=== PATIENT | female | born 1975 | race Caucasian/White ===

== ENCOUNTER 2021-02-07 13:02 | Inpatient (IN) | payer MEDICAID, SELFPAY ==
[2021-02-07 13:03] VITALS: BP 138/74; PULSE 94; RESP 16; TEMP 36.2; O2SAT 98; BMI 40.6
--- NOTE | 2021-02-07 13:08 | EDS_ITS ---
HPI History of Present Illness Chief Complaint: Substance Abuse Narrative Narrative: 24-year-old female currently on Subutex presenting for withdrawal from benzodiazepines. She states she takes Xanax chronically. This is prescribed for her however she has been overusing them. She wished to detox from benzodiazepines however [facility] would not take her for benzodiazepine withdrawal. She states that she last used yesterday and has been a little bit shaky and vomiting today. [facility] Medical History (Updated 02/07/21 @ 14:53 by Loreto Canales) Anxiety Depression Hypothyroidism MRSA carrier PTSD (post-traumatic stress disorder) Seizures Substance abuse Home Medications alprazolam [Xanax] 2 mg PO Q6H 02/07/21 [History Last Taken 02/06/21] buprenorphine-naloxone [Zubsolv] 1 tab SUBLINGUAL DAILY 02/07/21 [History Last Taken Unknown] clonidine HCl 0.2 mg PO TID 02/07/21 [History Last Taken Unknown] furosemide 40 mg PO DAILY 02/07/21 [History Last Taken Unknown] gabapentin 800 mg PO 4X/DAY 02/07/21 [History Last Taken Unknown] levothyroxine 100 mcg PO DAILY 02/07/21 [History Last Taken Unknown] potassium chloride 20 meq PO DAILY 02/07/21 [History Last Taken Unknown] quetiapine [Seroquel] 100 mg PO DAILY 02/07/21 [History Last Taken Unknown] Allergy/AdvReac Type Severity Reaction Status Date / Time naloxone Allergy Anaphylaxis Verified 02/07/21 13:03 Surgical History (Updated 02/07/21 @ 14:52 by Loreto Canales) Hx of appendectomy Hx of cholecystectomy Social History Smoking Status: Current every day smoker tobacco type: cigarettes ROS ROS ED Constitutional Constitutional ED: Denies chills, fever(s) or subjective Eyes Eyes: Denies blurry vision or change in vision ENT ENT ED: Denies rhinorrhea or sore throat Cardiovascular Cardiovascular: Denies chest pain or palpitations Respiratory/Chest Respiratory/Chest: Denies cough or dyspnea Gastrointestinal Gastrointestinal: Reports nausea and vomiting Genitourinary Genitourinary ED: Denies dysuria or urinary frequency Musculoskeletal Musculoskeletal: Denies arthralgias or myalgias Integumentary Denies abscess or rash Neurologic Neurologic: Reports headache(s); Denies paresthesias EXAM Physical Exam Const Vital Signs: 02/07/21 13:03 Temperature 97.2 F L Temperature Source Temporal Pulse Rate 94 Respiratory Rate 16 Blood Pressure 138/74 H Blood Pressure Mean 95 Pulse Ox 98 Oxygen Delivery Method Room Air Positive well nourished General Appearance ED: NAD BARB Reports moist mucous membranes atraumatic Eyes PERRL and EOMs intact bilaterally Chest Wall inspection of chest normal and palpation of chest normal Resp normal respiratory effort and clear to auscultation bilaterally Cardio regular rate and regular rhythm Neuro oriented x3 Sensorium / Orientation: alert Psych mental status grossly normal and thought process normal Skin Lesions: no lesions Rashes: no rashes MDM MDM MDM Narrative Medical decision making narrative: Patient presenting with the need for admission for benzodiazepine withdrawal. She states she takes too many Xanax and wants to come off of these. I did obtain medical clearance and her lab work-up was unremarkable. Urine drug screen is positive for barbiturates and benzodiazepine. Patient remained with stable vital signs and alert and oriented. Her nausea was treated with Zofran and she did improve. Patient was discussed with Dr. Bartlett in order to obtain follow-up after hospitalization for the benzodiazepine taper. She did agree as long as the patient was going to be inpatient with her. Patient was discussed with the hospitalist and admitted in stable condition. Impression: 1. Benzodiazepine abuse Lab Data Attestation: I reviewed the patient's lab results. Labs: Laboratory Results - last 24 hr 02/07/21 02/07/21 02/07/21 13:10 13:20 13:20 WBC 6.1 RBC 4.85 Hgb 12.9 Hct 42.3 MCV 87.2 MCH 26.6 L MCHC 30.5 L RDW Std Deviation 48.1 H RDW Coeff of Kris 15.0 H Plt Count 239 MPV 10.2 Immature Gran % (Auto) 0.200 Neut % (Auto) 38.3 L Lymph % (Auto) 45.4 H [place] % (Auto) 7.5 Eos % (Auto) 7.5 H Baso % (Auto) 1.1 H Absolute Neuts (auto) 2.4 Absolute Lymphs (auto) 2.79 Nucleated RBC % 0 Sodium Potassium Chloride Carbon Dioxide Anion Gap BUN Creatinine Estim Creat Clear Calc Est GFR (MDRD) Af Amer Est GFR (MDRD) Non-Af BUN/Creatinine Ratio Glucose Calcium Total Bilirubin AST ALT Alkaline Phosphatase Total Protein Albumin Globulin Albumin/Globulin Ratio Serum , Qual Urine Opiates Screen NEGATIVE Urine Methadone Screen NEGATIVE Ur Barbiturates Screen POSITIVE H Ur Phencyclidine Scrn NEGATIVE Ur Amphetamines Screen NEGATIVE U Methamphetamin-MDMA NEGATIVE U Benzodiazepines Scrn POSITIVE H Urine Cocaine Screen NEGATIVE U Cannabinoids Screen NEGATIVE Ur Drug Screen Comment Ethyl Alcohol 4.0 02/07/21 02/07/21 13:20 13:20 WBC RBC Hgb Hct MCV MCH MCHC RDW Std Deviation RDW Coeff of Kris Plt Count MPV Immature Gran % (Auto) Neut % (Auto) Lymph % (Auto) [place] % (Auto) Eos % (Auto) Baso % (Auto) Absolute Neuts (auto) Absolute Lymphs (auto) Nucleated RBC % Sodium 137 Potassium 3.8 Chloride 107 Carbon Dioxide 24.0 Anion Gap 6 BUN 9 Creatinine 0.93 Estim Creat Clear Calc 75.85 Est GFR (MDRD) Af Amer 95 Est GFR (MDRD) Non-Af 79 BUN/Creatinine Ratio 9.6 L Glucose 122 H Calcium 8.2 L Total Bilirubin 0.20 AST 20 ALT 20 Alkaline Phosphatase 92 Total Protein 7.7 Albumin 3.5 Globulin 4.2 Albumin/Globulin Ratio 0.8 L Serum , Qual NEGATIVE Urine Opiates Screen Urine Methadone Screen Ur Barbiturates Screen Ur Phencyclidine Scrn Ur Amphetamines Screen U Methamphetamin-MDMA U Benzodiazepines Scrn Urine Cocaine Screen U Cannabinoids Screen Ur Drug Screen Comment Ethyl Alcohol Discharge Plan Triage Chief Complaint: Substance Abuse ED Provider: Vipul Payne
[2021-02-07] MEDS: Ondansetron ODT 4 MG Tablet PO (13:20)
[2021-02-07 13:31] LABS: Absolute Lymphocyte Count 2.79 X10^3/uL (0.83-4.51); Absolute Neutrophil Count 2.4 X10^3/uL (2.0-7.7); Basophil# 0.07 X10^3/uL; Basophil% 1.1 % (0-1); Eosinophil# 0.46 X10^3/uL; Eosinophils% 7.5 % (0-5); Hematocrit 42.3 % (37-47); Hemoglobin 12.9 g/dL (12.0-15.0); Lymphocyte # 2.79 X10^3/ul (0.83-4.51); Lymphocyte % 45.4 % (19-41); Mean Corp Hgb Conc 30.5 g/dL (32-36); Mean Corpuscular Hgb 26.6 pg (27.0-32.0); Mean Corpuscular Volume 87.2 fL (81-99); Mean Platelet Vol. 10.2 fl (6.2-12.0); Monocyte# 0.46 X10^3/uL; Monocyte% 7.5 % (0-10); NRBC Flagged by Analyzer 0 % (0-5); Neutrophil # 2.35 X10^3/uL (2.7-7.7); Neutrophil % 38.3 % (47-70); Platelet Count 239 K/mm3 (150-450); RBC Distribution Width SD 48.1 fl (35.1-43.9); Red Blood Count 4.85 M/mm3 (4.2-5.4); White Blood Count 6.1 K/mm3 (4.4-11.0)
[2021-02-07 13:46] LABS: ALB/GLOB Ratio 0.8 RATIO (0.9-2.4); AST(SGOT) 20 U/L (15-37); Alanine Aminotransfer ALT/SGPT 20 U/L (13-56); Albumin, Serum 3.5 g/dL (3.2-5.0); Alkaline Phosphatase 92 U/L (45-117); Anion Gap 6 (5-15); BUN 9 mg/dL (7-18); BUN/Creat Ratio 9.6 RATIO (10-20); Calcium,Total 8.2 mg/dL (8.5-10.1); Chloride 107 mmol/L (98-107); Creatinine, Serum 0.93 mg/dL (0.55-1.02); EST Glomerular Filtration Rate 79 mL/min (>60); Est Glom Filt Rate - Afr Amer 95 mL/min (>60); Estimated Creatinine Clearance 75.85 ml/min; Globulin 4.2 g/dL (2.2-4.2); Glucose 122 mg/dL (74-106); Potassium 3.8 mmol/L (3.5-5.1); Protein, Total 7.7 g/dL (6.4-8.2); Sodium Level 137 mmol/L (136-145)
[2021-02-07 13:57] LABS: Amphetamine Urine VISTA NEGATIVE (<1000 ng/mL); Barbiturate Urine VISTA POSITIVE (< 200 ng/mL); Benzodiazepine Urine VISTA POSITIVE (< 200 ng/mL); Cocaine Urine VISTA NEGATIVE (< 300 ng/mL); Ecstacy Urine VISTA NEGATIVE (< 500 ng/mL); Methadone Urine VISTA NEGATIVE (< 300 ng/mL); PCP Urine VISTA NEGATIVE (< 25 ng/mL); THC Urine VISTA NEGATIVE (< 50 ng/mL); Vista UDS pH Range 6
[2021-02-07 14:08] LABS: Internal QC Validated? YES +Cl - CLEAR BKGD; Pregnancy, Serum, hCG Quali. NEGATIVE Negative
--- NOTE | 2021-02-07 14:20 | NURSING ---
DR CASTILLO FOR DR LEHMAN
--- NOTE | 2021-02-07 14:58 | NURSING ---
MED SURG ANNA SANON
[2021-02-07 15:09] VITALS: BP 138/74; PULSE 94; RESP 16; TEMP 36.2; O2SAT 98
--- NOTE | 2021-02-07 15:19 | CM.ED ---
SOCIAL WORK Referral Source: Dr. Payne Reason for Consult: Substance abuse-requesting detox from benzodiazepines Patient presents for detox. Patient reporting to be misusing Xanax prescription and requesting detox. Patient admitted to [facility] and physician discussed with Dr. Bartlett. Call to Melania with [facility] to update on admission. Plan: Admit to [facility] Blanquita Kidd, BI REPORT DEVELOPER, OCCUPATIONAL MEDICINE OFFICER
[2021-02-07 15:40] VITALS: BMI 40.4
[2021-02-07 15:41] VITALS: BP 116/71; PULSE 71; RESP 16; TEMP 36.6; O2SAT 100
--- NOTE | 2021-02-07 16:03 | PCM.HP.STD ---
Documented by User: ALY Alvarez 02/07/21 16:24 HPI - General General Date of Admission: 02/07/21 HPI Narrative AURELIA MOREIRA, is a 45 F who presents to the ER with desire for detoxification from Xanax. Patient does report a history of seizures when withdrawing from alcohol or benzos. Patient states that despite the Xanax being prescribed to her she has been abusing them and states her last use was yesterday. Patient states that she is currently feeling tremorous and has had bouts of nausea and vomiting today. [facility] Medical History Anxiety Depression Hypothyroidism MRSA carrier PTSD (post-traumatic stress disorder) Seizures Substance abuse Home Medications albuterol sulfate 1 - 2 puff INHALATION Q4H PRN 02/07/21 [History Last Taken Unknown] alprazolam [Xanax] 2 mg PO Q6H 02/07/21 [History Last Taken 02/06/21] buprenorphine-naloxone [Zubsolv] 1 tab SUBLINGUAL DAILY 02/07/21 [History Last Taken 02/06/21] clonazepam 1 mg PO TID PRN 02/07/21 [History Last Taken Unknown] clonidine HCl 0.2 mg PO TID 02/07/21 [History Last Taken 02/06/21] dicyclomine 10 mg PO TID PRN 02/07/21 [History Last Taken Unknown] doxepin 50 mg PO DAILY 02/07/21 [History Last Taken 02/06/21] doxepin 100 mg PO QHS 02/07/21 [History Last Taken 02/06/21] furosemide 40 mg PO DAILY 02/07/21 [History Last Taken 02/06/21] gabapentin 800 mg PO 4X/DAY 02/07/21 [History Last Taken 02/06/21] haloperidol 1 mg PO BID 02/07/21 [History Last Taken 02/06/21] levothyroxine 100 mcg PO DAILY 02/07/21 [History Last Taken 02/06/21] meloxicam 15 mg PO DAILY PRN 02/07/21 [History Last Taken Unknown] ondansetron 8 mg PO TID PRN 02/07/21 [History Last Taken 02/07/21] phenobarbital 64.8 mg PO DAILY 02/07/21 [History Last Taken Unknown] potassium chloride 20 meq PO DAILY 02/07/21 [History Last Taken 02/06/21] quetiapine [Seroquel] 100 mg PO DAILY 02/07/21 [History Last Taken Unknown] ziprasidone HCl 40 mg PO BID 02/07/21 [History Last Taken 02/04/21] Allergy/AdvReac Type Severity Reaction Status Date / Time naloxone Allergy Anaphylaxis Verified 02/07/21 13:03 Surgical History Hx of appendectomy Hx of cholecystectomy Social History (Updated 02/07/21 @ 16:06 by Karen Andres NP-C) Smoking Status: Current every day smoker tobacco type: cigarettes Smoking packs per day: 2 Smoking cigarettes per day: 40.0 Years smoked: 20 Smoking pack-years: 40.00 alcohol intake: never ROS Constitutional Constitutional: Reports chills and malaise; Denies anorexia, fatigue, fever(s) or weakness Cardiovascular Cardiovascular: Denies chest pain, edema or palpitations Respiratory/Chest Respiratory/Chest: Denies cough, shortness of breath at rest or shortness of breath with exertion Gastrointestinal Gastrointestinal: Reports nausea and vomiting; Denies abdominal pain, constipation or diarrhea Genitourinary Genitourinary: Denies dysuria Musculoskeletal Musculoskeletal: Denies back pain, extremity pain, joint pain or joint stiffness Integumentary Integumentary: Denies dry skin Neurologic Neurologic: Reports tremor(s); Denies abnormal gait, abnormal speech, confusion, dizziness or focal weakness Psychiatric Psychiatric: Denies anxiety or depression Endocrine Endocrinology: Denies change in body appearance Hematologic/Lymphatic Hematologic/Lymphatic: Denies easy bleeding or easy bruising Vital Signs Vital Signs Vital Signs: 02/07/21 13:03 02/07/21 15:09 02/07/21 15:41 Temperature 97.2 F L 97.2 F L 97.8 F Temperature Source Temporal Temporal Oral Pulse Rate 94 94 71 Respiratory Rate 16 16 16 Blood Pressure 138/74 H 138/74 H 116/71 Blood Pressure Mean 95 95 86 Blood Pressure Source Monitor Blood Pressure Position Semi-Fowlers Blood Pressure Location Right Arm Pulse Ox 98 98 100 Oxygen Delivery Method Room Air Room Air Room Air Weight Weight: 261 lb 12.8 oz Body Mass Index (BMI) 40.4 Physical Exam Const alert and oriented x3 General Appearance: cooperative HEENT normocephalic and head/scalp atraumatic Eyes conjunctivae normal and no scleral icterus Neck supple and no JVD General: trachea midline Lymph Lymphatic: no lymphadenopathy noted Resp normal respiratory effort, normal air movement and clear to auscultation bilaterally Cardio regular rate, regular rhythm, S1 normal heart sound and S2 normal heart sound GI normal to inspection, nondistended, normoactive bowel sounds, soft to palpation and non-tender Extremity normal capillary refill and no clubbing, cyanosis or edema General Extremity: no tenderness to palpation of joints or extremities Skin General Skin Exam: no breakdown and turgor normal Lesions: no lesions Rashes: no rashes Neuro oriented x3, moves all extremities, no sensory deficits noted and gait normal Motor Exam: tremor Type: Positive for resting Positive for bilateral upper extremity Psych thought process normal, cooperative and affect normal Appearance: appropriate Results Lab / Micro Data Result Diagrams: 02/07/21 13:20 02/07/21 13:20 Labs: Laboratory Results - last 24 hr 02/07/21 02/07/21 02/07/21 13:10 13:20 13:20 WBC 6.1 RBC 4.85 Hgb 12.9 Hct 42.3 MCV 87.2 MCH 26.6 L MCHC 30.5 L RDW Std Deviation 48.1 H RDW Coeff of Kris 15.0 H Plt Count 239 MPV 10.2 Immature Gran % (Auto) 0.200 Neut % (Auto) 38.3 L Lymph % (Auto) 45.4 H [place] % (Auto) 7.5 Eos % (Auto) 7.5 H Baso % (Auto) 1.1 H Absolute Neuts (auto) 2.4 Absolute Lymphs (auto) 2.79 Nucleated RBC % 0 Sodium Potassium Chloride Carbon Dioxide Anion Gap BUN Creatinine Estim Creat Clear Calc Est GFR (MDRD) Af Amer Est GFR (MDRD) Non-Af BUN/Creatinine Ratio Glucose Calcium Total Bilirubin AST ALT Alkaline Phosphatase Total Protein Albumin Globulin Albumin/Globulin Ratio Serum , Qual Urine Opiates Screen NEGATIVE Urine Methadone Screen NEGATIVE Ur Barbiturates Screen POSITIVE H Ur Phencyclidine Scrn NEGATIVE Ur Amphetamines Screen NEGATIVE U Methamphetamin-MDMA NEGATIVE U Benzodiazepines Scrn POSITIVE H Urine Cocaine Screen NEGATIVE U Cannabinoids Screen NEGATIVE Ur Drug Screen Comment Ethyl Alcohol 4.0 02/07/21 02/07/21 13:20 13:20 WBC RBC Hgb Hct MCV MCH MCHC RDW Std Deviation RDW Coeff of Kris Plt Count MPV Immature Gran % (Auto) Neut % (Auto) Lymph % (Auto) [place] % (Auto) Eos % (Auto) Baso % (Auto) Absolute Neuts (auto) Absolute Lymphs (auto) Nucleated RBC % Sodium 137 Potassium 3.8 Chloride 107 Carbon Dioxide 24.0 Anion Gap 6 BUN 9 Creatinine 0.93 Estim Creat Clear Calc 75.85 Est GFR (MDRD) Af Amer 95 Est GFR (MDRD) Non-Af 79 BUN/Creatinine Ratio 9.6 L Glucose 122 H Calcium 8.2 L Total Bilirubin 0.20 AST 20 ALT 20 Alkaline Phosphatase 92 Total Protein 7.7 Albumin 3.5 Globulin 4.2 Albumin/Globulin Ratio 0.8 L Serum , Qual NEGATIVE Urine Opiates Screen Urine Methadone Screen Ur Barbiturates Screen Ur Phencyclidine Scrn Ur Amphetamines Screen U Methamphetamin-MDMA U Benzodiazepines Scrn Urine Cocaine Screen U Cannabinoids Screen Ur Drug Screen Comment Ethyl Alcohol Assessment & Plan Assessment/Plan (1) Benzodiazepine withdrawal: QUALIFIERS: Complication of substance-induced condition: uncomplicated Qualified Code(s): F13.230 - Sedative, hypnotic or anxiolytic dependence with withdrawal, uncomplicated PLAN: 1. Benzodiazepine withdrawal -Admit to [facility] for participation in the ramp program -Will initiate Ativan taper along with supportive medications including gabapentin per protocol -Case management consulted for coordination with [facility] for outpatient management -Case is complicated by the patient's use of multiple benzodiazepines including alprazolam and clonazepam along with other sedating substances including Seroquel, phenobarbital, Haldol. -Patient has a history of opioid abuse as well, will continue Subutex at this time as patient does not wish to withdrawal from both medications concurrently 2. Anxiety and depression -Will continue clonidine, doxepin, haloperidol, Geodon and Seroquel -as part of withdrawal program patient will be set up with [facility] for continued outpatient counseling and medication management 3. PTSD -see #3 4. Seizures -continue phenobarbital especially considering patient's history of withdrawal seizures 5. Hypothyroidism -continue levothyroxine DVT prophylaxis-no pharmacological prophylaxis indicated This patient was seen by ALY Alvarez under the supervision of Dr. Mack. Documented by User: Dr. Gary Mack MD 02/08/21 11:28 HPI - General General Date of Admission: 02/07/21 [facility] Medical History Anxiety Depression Hypothyroidism MRSA carrier PTSD (post-traumatic stress disorder) Seizures Substance abuse Home Medications albuterol sulfate 1 - 2 puff INHALATION Q4H PRN 02/07/21 [History Last Taken Unknown] alprazolam [Xanax] 2 mg PO Q6H 02/07/21 [History Last Taken 02/06/21] buprenorphine-naloxone [Zubsolv] 1 tab SUBLINGUAL DAILY 02/07/21 [History Last Taken 02/06/21] clonazepam 1 mg PO TID PRN 02/07/21 [History Last Taken Unknown] clonidine HCl 0.2 mg PO TID 02/07/21 [History Last Taken 02/06/21] dicyclomine 10 mg PO TID PRN 02/07/21 [History Last Taken Unknown] doxepin 50 mg PO DAILY 02/07/21 [History Last Taken 02/06/21] doxepin 100 mg PO QHS 02/07/21 [History Last Taken 02/06/21] furosemide 40 mg PO DAILY 02/07/21 [History Last Taken 02/06/21] gabapentin 800 mg PO 4X/DAY 02/07/21 [History Last Taken 02/06/21] haloperidol 1 mg PO BID 02/07/21 [History Last Taken 02/06/21] levothyroxine 100 mcg PO DAILY 02/07/21 [History Last Taken 02/06/21] meloxicam 15 mg PO DAILY PRN 02/07/21 [History Last Taken Unknown] ondansetron 8 mg PO TID PRN 02/07/21 [History Last Taken 02/07/21] phenobarbital 64.8 mg PO DAILY 02/07/21 [History Last Taken Unknown] potassium chloride 20 meq PO DAILY 02/07/21 [History Last Taken 02/06/21] quetiapine [Seroquel] 100 mg PO DAILY 02/07/21 [History Last Taken Unknown] ziprasidone HCl 40 mg PO BID 02/07/21 [History Last Taken 02/04/21] Allergy/AdvReac Type Severity Reaction Status Date / Time naloxone Allergy Anaphylaxis Verified 02/07/21 13:03 Surgical History Hx of appendectomy Hx of cholecystectomy Social History (Updated 02/07/21 @ 16:06 by Karen Andres NP-C) Smoking Status: Current every day smoker tobacco type: cigarettes Smoking packs per day: 2 Smoking cigarettes per day: 40.0 Years smoked: 20 Smoking pack-years: 40.00 alcohol intake: never Results Lab / Micro Data Result Diagrams: 02/07/21 13:20 02/07/21 13:20 Charges/Coding Addendum Addendum: Dr. Mack: I personally reviewed the chart and examined the patient, and agree with the above findings. 45-year-old female with previous history of suicidal ideation attempt presents requesting detox from benzodiazepines. She wants to stay on her Subutex for now but she states that she has too much reliance on benzodiazepines. She is already on quite a bit of different medications including Xanax 2 mg every 6 Klonopin 1 mg 3 times daily as needed gabapentin 800 mg p.o. 4 times daily, Haldol, phenobarbital, Seroquel, ziprasidone. Unfortunate she has multiple prescribers for her medications which I did talk to her about and she said that mostly is from her psychiatrist, and a general surgeon. We will continue with the benzo withdrawal protocol and have her follow-up with [facility] on discharge. I did discuss with her that I will not be writing her any prescriptions whatsoever on discharge. Visit Charges Inpatient E&M: 59264 Init Hosp L3
[2021-02-07] MEDS: LORazepam 1 MG Tablet 0.5 MG PO ×2 (16:59→22:35)
[2021-02-07] MEDS: Gabapentin 800 MG Tablet PO ×2 (16:59→22:26)
[2021-02-07] MEDS: Dicyclomine 10 MG Capsule PO ×2 (16:59→22:35)
[2021-02-07] MEDS: cloNIDine HCl 0.2 MG Tablet PO (17:04)
[2021-02-07 22:15] VITALS: BP 100/60; PULSE 63; RESP 16; TEMP 36.6; O2SAT 95
[2021-02-07] MEDS: DOXEPIN HCL 50 MG CAPSULE 100 MG PO (22:25)
[2021-02-07] MEDS: Haloperidol 1 MG Tablet PO (22:25)
[2021-02-07] MEDS: Meloxicam 15 MG Tablet PO (22:35)
[2021-02-07] MEDS: Ondansetron 8 MG Tablet PO (22:35)
[2021-02-07] MEDS: Ziprasidone HCl 20 MG Capsule 40 MG PO (22:35)
[2021-02-08] MEDS: LORazepam 1 MG Tablet 0.5 MG PO ×5 (01:44→20:43)
[2021-02-08 02:04] VITALS: BP 100/66; PULSE 62; RESP 15; TEMP 36.6; O2SAT 96
[2021-02-08] MEDS: Dicyclomine 10 MG Capsule PO ×2 (05:29→20:44)
[2021-02-08] MEDS: Ondansetron 8 MG Tablet PO ×2 (05:29→20:43)
[2021-02-08] MEDS: Levothyroxine 100 MCG Tablet PO (05:30)
[2021-02-08 07:50] VITALS: BP 104/65; PULSE 71; RESP 14; TEMP 36.8; O2SAT 96
[2021-02-08] MEDS: Thiamine Hydrochloride 100 MG Tablet PO (07:53)
[2021-02-08] MEDS: Potassium Chloride Oral Tablet 20 MEQ PO (07:53)
[2021-02-08] MEDS: Folic Acid 1 MG Tablet PO (07:53)
[2021-02-08] MEDS: cloNIDine HCl 0.2 MG Tablet PO (07:54)
--- NOTE | 2021-02-08 09:27 | ADDICTION ---
This commercial underwriter attempted to meet with PT. PT was asleep upon arrival and woke to verbal queuing. PT was confused and lethargic and was not able to participate enough to complete assessments. This commercial underwriter will meet with PT at next visit on 02/09/21.
[2021-02-08] MEDS: QUEtiapine 100 MG Tablet PO (10:50)
[2021-02-08] MEDS: BUPRENORPHINE HCL 8 MG TAB.SUBL SL (10:50)
[2021-02-08] MEDS: Phenobarbital 32.4 MG Tablet 64.8 MG PO (10:50)
[2021-02-08] MEDS: Haloperidol 1 MG Tablet PO (10:50)
[2021-02-08] MEDS: Furosemide 40 MG Tablet PO (10:50)
[2021-02-08] MEDS: DOXEPIN HCL 50 MG CAPSULE PO (10:51)
[2021-02-08] MEDS: Ziprasidone HCl 20 MG Capsule 40 MG PO ×2 (10:52→21:39)
[2021-02-08] MEDS: Gabapentin 800 MG Tablet PO ×3 (10:52→20:44)
--- NOTE | 2021-02-08 11:28 | PCM.PN.HOSP ---
Subjective Subjective Resting comfortably, no issues overnight. Objective Data Objective Data Vital Signs: Vital Signs Temp Pulse Resp BP Pulse Ox 98.2 F 71 14 104/65 96 02/08/21 07:50 02/08/21 07:50 02/08/21 07:50 02/08/21 07:50 02/08/21 07:50 Oxygen Delivery Method Room Air Weight: 261 lb 12.8 oz Body Mass Index (BMI) 40.4 Intake & Output: Intake and Output for Last 24 Hours 02/07/21 02/08/21 02/09/21 03:59 03:59 03:59 Intake Total 350 / 350 540 / 540 Balance 350 / 350 540 / 540 Lab / Micro Data Result Diagrams: 02/07/21 13:20 02/07/21 13:20 Labs: Laboratory Results - last 24 hr 02/07/21 02/07/21 02/07/21 13:10 13:20 13:20 WBC 6.1 RBC 4.85 Hgb 12.9 Hct 42.3 MCV 87.2 MCH 26.6 L MCHC 30.5 L RDW Std Deviation 48.1 H RDW Coeff of Kris 15.0 H Plt Count 239 MPV 10.2 Immature Gran % (Auto) 0.200 Neut % (Auto) 38.3 L Lymph % (Auto) 45.4 H [place] % (Auto) 7.5 Eos % (Auto) 7.5 H Baso % (Auto) 1.1 H Absolute Neuts (auto) 2.4 Absolute Lymphs (auto) 2.79 Nucleated RBC % 0 Sodium Potassium Chloride Carbon Dioxide Anion Gap BUN Creatinine Estim Creat Clear Calc Est GFR (MDRD) Af Amer Est GFR (MDRD) Non-Af BUN/Creatinine Ratio Glucose Calcium Total Bilirubin AST ALT Alkaline Phosphatase Total Protein Albumin Globulin Albumin/Globulin Ratio Serum , Qual Urine Opiates Screen NEGATIVE Urine Methadone Screen NEGATIVE Ur Barbiturates Screen POSITIVE H Ur Phencyclidine Scrn NEGATIVE Ur Amphetamines Screen NEGATIVE U Methamphetamin-MDMA NEGATIVE U Benzodiazepines Scrn POSITIVE H Urine Cocaine Screen NEGATIVE U Cannabinoids Screen NEGATIVE Ur Drug Screen Comment Ethyl Alcohol 4.0 02/07/21 02/07/21 13:20 13:20 WBC RBC Hgb Hct MCV MCH MCHC RDW Std Deviation RDW Coeff of Kris Plt Count MPV Immature Gran % (Auto) Neut % (Auto) Lymph % (Auto) [place] % (Auto) Eos % (Auto) Baso % (Auto) Absolute Neuts (auto) Absolute Lymphs (auto) Nucleated RBC % Sodium 137 Potassium 3.8 Chloride 107 Carbon Dioxide 24.0 Anion Gap 6 BUN 9 Creatinine 0.93 Estim Creat Clear Calc 75.85 Est GFR (MDRD) Af Amer 95 Est GFR (MDRD) Non-Af 79 BUN/Creatinine Ratio 9.6 L Glucose 122 H Calcium 8.2 L Total Bilirubin 0.20 AST 20 ALT 20 Alkaline Phosphatase 92 Total Protein 7.7 Albumin 3.5 Globulin 4.2 Albumin/Globulin Ratio 0.8 L Serum , Qual NEGATIVE Urine Opiates Screen Urine Methadone Screen Ur Barbiturates Screen Ur Phencyclidine Scrn Ur Amphetamines Screen U Methamphetamin-MDMA U Benzodiazepines Scrn Urine Cocaine Screen U Cannabinoids Screen Ur Drug Screen Comment Ethyl Alcohol Physical Exam Const alert, oriented x3 and no apparent distress HEENT moist oral mucous membranes Head and Scalp: normocephalic Eyes PERRL, EOMs intact bilaterally and conjunctivae normal Neck supple and no JVD Resp normal respiratory effort, no retractions, no use of accessory muscles and clear to auscultation bilaterally Auscultation: Negative for crackles, rales, rhonchi or wheezes Cardio regular rate, regular rhythm, S1 normal heart sound, S2 normal heart sound and no murmurs GI soft to palpation, non-tender and non-distended; Negative for hepatosplenomegaly Extremity no clubbing, cyanosis or edema Skin no rashes or lesions noted Neuro no focal motor deficits and no sensory deficits noted Psych Mood & Affect: flat affect Assessment & Plan Assessment/Plan (1) Benzodiazepine withdrawal: QUALIFIERS: Complication of substance-induced condition: uncomplicated Qualified Code(s): F13.230 - Sedative, hypnotic or anxiolytic dependence with withdrawal, uncomplicated PLAN: 1. Benzodiazepine withdrawal/anxiety/depression/PTSD -Admit to [facility] for participation in the ramp program -Will initiate Ativan taper along with supportive medications including gabapentin per protocol -Case management consulted for coordination with [facility] for outpatient management -Case is complicated by the patient's use of multiple benzodiazepines including alprazolam and clonazepam along with other sedating substances including Seroquel, phenobarbital, Haldol. -Patient has a history of opioid abuse as well, will continue Subutex at this time as patient does not wish to withdrawal from both medications concurrently -Hopefully with the cessation of using her benzos, the issues with significant prescriptions by multiple providers will be solved. 2. Seizures -continue phenobarbital especially considering patient's history of withdrawal seizures 3. Hypothyroidism -continue levothyroxine DVT: Ambulation Charges/Coding Visit Charges Inpatient E&M: 64937 Subs Hosp L2
[2021-02-08 13:30] VITALS: BP 99/61; PULSE 62; RESP 14; TEMP 36.6; O2SAT 96
[2021-02-08 20:34] VITALS: BP 109/71; PULSE 70; RESP 17; TEMP 36.4; O2SAT 94
[2021-02-08] MEDS: Meloxicam 15 MG Tablet PO (20:43)
[2021-02-08] MEDS: DOXEPIN HCL 50 MG CAPSULE 100 MG PO (21:39)
[2021-02-09] MEDS: LORazepam 1 MG Tablet 0.5 MG PO ×6 (01:23→20:48)
[2021-02-09 02:14] VITALS: BP 100/67; PULSE 64; RESP 17; TEMP 36.4; O2SAT 95
[2021-02-09] MEDS: Dicyclomine 10 MG Capsule PO (05:10)
[2021-02-09] MEDS: Ondansetron 8 MG Tablet PO (05:10)
[2021-02-09] MEDS: Levothyroxine 100 MCG Tablet PO (05:13)
[2021-02-09 09:13] VITALS: BP 123/75; PULSE 91; RESP 18; TEMP 36.7; O2SAT 95
[2021-02-09] MEDS: DOXEPIN HCL 50 MG CAPSULE PO (09:22)
[2021-02-09] MEDS: BUPRENORPHINE HCL 8 MG TAB.SUBL SL (09:22)
[2021-02-09] MEDS: Furosemide 40 MG Tablet PO (09:22)
[2021-02-09] MEDS: cloNIDine HCl 0.2 MG Tablet PO ×3 (09:22→16:57)
[2021-02-09] MEDS: Thiamine Hydrochloride 100 MG Tablet PO (09:22)
[2021-02-09] MEDS: Folic Acid 1 MG Tablet PO (09:22)
[2021-02-09] MEDS: Potassium Chloride Oral Tablet 20 MEQ PO (09:22)
[2021-02-09] MEDS: QUEtiapine 100 MG Tablet PO (09:22)
[2021-02-09] MEDS: Gabapentin 800 MG Tablet PO ×3 (09:22→20:50)
--- NOTE | 2021-02-09 09:22 | ADDICTION ---
This continuity writer met with PT to conduct ASAM, MSE, DUDIT assessments and to plan for d/c. All assessments completed, faxed to [facility] and placed in PTs chart. PT to directly admit to [facility] on Saturday02/13/21. PT amiable to plan.
--- NOTE | 2021-02-09 09:29 | PN.HOSP_ITS ---
Subjective Subjective More alert today, no issues overnight. Discontinued her Haldol completely yesterday, and will decrease her dosing of gabapentin today and will decrease her Seroquel dosing tomorrow Objective Data Objective Data Vital Signs: Vital Signs Temp Pulse Resp BP Pulse Ox 98.0 F 91 18 123/75 H 95 02/09/21 09:13 02/09/21 09:13 02/09/21 09:13 02/09/21 09:13 02/09/21 09:13 Oxygen Delivery Method Room Air Weight: 261 lb 12.8 oz Body Mass Index (BMI) 40.4 Intake & Output: Intake and Output for Last 24 Hours 02/08/21 02/09/21 02/10/21 03:59 03:59 03:59 Intake Total 350 / 350 1320 / 1320 880 / 880 Balance 350 / 350 1320 / 1320 880 / 880 Lab / Micro Data Result Diagrams: 02/07/21 13:20 02/07/21 13:20 Physical Exam Const alert, oriented x3 and no apparent distress HEENT normocephalic and moist oral mucous membranes Eyes PERRL, EOMs intact bilaterally and conjunctivae normal Neck supple and no JVD Resp normal respiratory effort, no retractions, no use of accessory muscles and clear to auscultation bilaterally Auscultation: Negative for crackles, rales, rhonchi or wheezes Cardio regular rate, regular rhythm, S1 normal heart sound, S2 normal heart sound and no murmurs GI soft to palpation, non-tender and non-distended; Negative for hepatosplenomegaly Extremity no clubbing, cyanosis or edema Skin no rashes or lesions noted Neuro no focal motor deficits and no sensory deficits noted Psych Appearance: appropriate Mood & Affect: flat affect Assessment & Plan Assessment/Plan (1) Benzodiazepine withdrawal: QUALIFIERS: Complication of substance-induced condition: uncomplicated Qualified Code(s): F13.230 - Sedative, hypnotic or anxiolytic dependence with withdrawal, uncomplicated PLAN: 1. Benzodiazepine withdrawal/anxiety/depression/PTSD -Admit to [facility] for participation in the ramp program -Will initiate Ativan taper along with supportive medications including gabapentin per protocol -Case management consulted for coordination with 180 for outpatient management -Case is complicated by the patient's use of multiple benzodiazepines including alprazolam and clonazepam along with other sedating substances including Seroquel, phenobarbital, Haldol. -Patient has a history of opioid abuse as well, will continue Subutex at this time as patient does not wish to withdrawal from both medications concurrently -Hopefully with the cessation of using her benzos, the issues with significant p rescriptions by multiple providers will be solved. -Discontinued Haldol yesterday, and will decrease her gabapentin dosing from 4 times a day to 3 times a day, plan for decreasing Seroquel from 100 mg daily to 50 mg daily in a.m. -Plan for residential on Saturday 2. Seizures -Stable -continue phenobarbital 3. Hypothyroidism -Stable -continue levothyroxine DVT: Ambulation Charges/Coding Visit Charges Inpatient E&M: 61893 Subs Hosp L2
[2021-02-09] MEDS: Phenobarbital 32.4 MG Tablet 64.8 MG PO (10:52)
[2021-02-09] MEDS: Ziprasidone HCl 20 MG Capsule 40 MG PO ×2 (10:52→20:49)
[2021-02-09 12:52] VITALS: BP 117/64; PULSE 79; RESP 16; TEMP 37; O2SAT 95
[2021-02-09 16:55] VITALS: BP 105/70; PULSE 77; RESP 18; TEMP 36.8; O2SAT 96
[2021-02-09 20:09] VITALS: BP 101/51; PULSE 72; RESP 16; TEMP 36.5; O2SAT 97
[2021-02-09 20:47] VITALS: BP 106/66; PULSE 75
[2021-02-09] MEDS: DOXEPIN HCL 50 MG CAPSULE 100 MG PO (20:49)
[2021-02-10 01:03] VITALS: BP 110/68; PULSE 70; RESP 16; TEMP 36.6; O2SAT 96
[2021-02-10] MEDS: LORazepam 1 MG Tablet 0.5 MG PO ×4 (01:07→17:57)
[2021-02-10 06:05] VITALS: BP 106/72; PULSE 82; RESP 16; TEMP 36.8; O2SAT 98
[2021-02-10] MEDS: Levothyroxine 100 MCG Tablet PO (06:10)
[2021-02-10] MEDS: Gabapentin 800 MG Tablet PO ×3 (06:10→22:04)
[2021-02-10 08:28] VITALS: BP 127/78; PULSE 100; RESP 16; TEMP 36.6; O2SAT 94
[2021-02-10] MEDS: Potassium Chloride Oral Tablet 20 MEQ PO (08:34)
[2021-02-10] MEDS: cloNIDine HCl 0.2 MG Tablet PO ×3 (08:34→17:57)
[2021-02-10] MEDS: Ondansetron 8 MG Tablet PO (08:34)
[2021-02-10] MEDS: Meloxicam 15 MG Tablet PO (08:34)
[2021-02-10] MEDS: Folic Acid 1 MG Tablet PO (08:34)
[2021-02-10] MEDS: Thiamine Hydrochloride 100 MG Tablet PO (08:34)
--- NOTE | 2021-02-10 09:26 | PCM.PN.HOSP ---
Subjective Subjective Feels achy all over, states that her Suboxone at home is usually twice daily but here she has been only getting it daily. She does not want withdrawal from Suboxone discussed with her that she has been very somnolent while she is here so I was waiting to decrease some of her other meds prior to increasing her Suboxone. Objective Data Objective Data Vital Signs: Vital Signs Temp Pulse Resp BP Pulse Ox 98 F 100 16 127/78 H 94 02/10/21 08:28 02/10/21 08:28 02/10/21 08:28 02/10/21 08:28 02/10/21 08:28 Oxygen Delivery Method Room Air Weight: 261 lb 12.8 oz Body Mass Index (BMI) 40.4 Intake & Output: Intake and Output for Last 24 Hours 02/09/21 02/10/21 02/11/21 03:59 03:59 03:59 Intake Total 1320 / 1320 3180 / 3180 200 / 200 Balance 1320 / 1320 3180 / 3180 200 / 200 Lab / Micro Data Result Diagrams: 02/07/21 13:20 02/07/21 13:20 Physical Exam Const alert, oriented x3 and no apparent distress General Appearance: cooperative HEENT normocephalic and moist oral mucous membranes Eyes PERRL, EOMs intact bilaterally and conjunctivae normal Neck supple and no JVD Lymph Lymphatic: no lymphadenopathy noted Resp normal respiratory effort, no retractions, no use of accessory muscles and clear to auscultation bilaterally Auscultation: Negative for crackles, rales, rhonchi or wheezes Cardio regular rate, regular rhythm, S1 normal heart sound, S2 normal heart sound and no murmurs GI soft to palpation, non-tender and non-distended; Negative for hepatosplenomegaly Extremity no clubbing, cyanosis or edema General Extremity: no tenderness to palpation of joints or extremities Skin no rashes or lesions noted Neuro no focal motor deficits and no sensory deficits noted Psych Appearance: appropriate Mood & Affect: flat affect Assessment & Plan Assessment/Plan (1) Benzodiazepine withdrawal: QUALIFIERS: Complication of substance-induced condition: uncomplicated Qualified Code(s): F13.230 - Sedative, hypnotic or anxiolytic dependence with withdrawal, uncomplicated PLAN: 1. Benzodiazepine withdrawal/anxiety/depression/PTSD -Admit to [facility] for participation in the ramp program -Will initiate Ativan taper along with supportive medications including gabapentin per protocol -Case management consulted for coordination with 180 for outpatient management -Case is complicated by the patient's use of multiple benzodiazepines including alprazolam and clonazepam along with other sedating substances including Seroquel, phenobarbital, Haldol. -Patient has a history of opioid abuse as well, will continue Subutex at this time as patient does not wish to withdrawal from both medications concurrently -Hopefully with the cessation of using her benzos, the issues with significant prescriptions by multiple providers will be solved. -Discontinued Haldol, and decrease her gabapentin dosing from 4 times a day to 3 times a day, decrease her Seroquel from 100 mg to 50 mg. Can put her back on twice daily Suboxone today if necessary -Plan for residential on Saturday 2. Seizures -Stable -continue phenobarbital 3. Hypothyroidism -Stable -continue levothyroxine DVT: Lovenox Charges/Coding Visit Charges Inpatient E&M: 11552 Subs Hosp L2
[2021-02-10] MEDS: BUPRENORPHINE HCL 8 MG TAB.SUBL SL ×2 (09:28→22:05)
[2021-02-10] MEDS: Furosemide 40 MG Tablet PO (09:28)
[2021-02-10] MEDS: Phenobarbital 32.4 MG Tablet 64.8 MG PO (09:28)
[2021-02-10] MEDS: DOXEPIN HCL 50 MG CAPSULE PO (09:28)
[2021-02-10] MEDS: Ziprasidone HCl 20 MG Capsule 40 MG PO ×2 (09:28→22:05)
[2021-02-10] MEDS: QUEtiapine 25 MG Tablet 50 MG PO (09:28)
[2021-02-10] MEDS: Enoxaparin 40 MG/0.4 ML Syringe SC (09:39)
[2021-02-10 12:20] VITALS: BP 107/65; PULSE 77; RESP 16; TEMP 37; O2SAT 96
[2021-02-10 17:55] VITALS: BP 102/67; PULSE 78; RESP 16; TEMP 36.9; O2SAT 97
[2021-02-10 21:53] VITALS: BP 118/63; PULSE 74; RESP 16; TEMP 36.6; O2SAT 96
[2021-02-10] MEDS: DOXEPIN HCL 50 MG CAPSULE 100 MG PO (22:04)
[2021-02-11] MEDS: LORazepam 1 MG Tablet 0.5 MG PO ×4 (00:22→17:05)
[2021-02-11 05:43] VITALS: BP 106/65; PULSE 74; RESP 16; TEMP 36.6; O2SAT 96
[2021-02-11] MEDS: Gabapentin 800 MG Tablet PO ×3 (05:46→21:24)
[2021-02-11] MEDS: Levothyroxine 100 MCG Tablet PO (05:46)
[2021-02-11 09:11] VITALS: BP 94/59; PULSE 81; RESP 16; TEMP 36.7; O2SAT 94
[2021-02-11] MEDS: Thiamine Hydrochloride 100 MG Tablet PO (09:20)
[2021-02-11] MEDS: Furosemide 40 MG Tablet PO (09:20)
[2021-02-11] MEDS: DOXEPIN HCL 50 MG CAPSULE PO (09:20)
[2021-02-11] MEDS: QUEtiapine 25 MG Tablet 50 MG PO (09:20)
[2021-02-11] MEDS: Folic Acid 1 MG Tablet PO (09:20)
[2021-02-11] MEDS: Potassium Chloride Oral Tablet 20 MEQ PO (09:20)
[2021-02-11] MEDS: Ziprasidone HCl 20 MG Capsule 40 MG PO ×2 (09:20→21:24)
[2021-02-11] MEDS: Enoxaparin 40 MG/0.4 ML Syringe SC (09:21)
[2021-02-11] MEDS: Phenobarbital 32.4 MG Tablet 64.8 MG PO (09:38)
[2021-02-11] MEDS: BUPRENORPHINE HCL 8 MG TAB.SUBL SL ×2 (10:08→21:37)
--- NOTE | 2021-02-11 10:26 | PN.HOSP_ITS ---
Subjective Subjective More significant withdrawal symptoms from her benzodiazepines, her AN's are 19 and her CINA's are 6 Objective Data Objective Data Vital Signs: Vital Signs Temp Pulse Resp BP Pulse Ox 98.1 F 81 16 94/59 L 94 02/11/21 09:11 02/11/21 09:11 02/11/21 09:11 02/11/21 09:11 02/11/21 09:11 Oxygen Delivery Method Room Air Weight: 261 lb 12.8 oz Body Mass Index (BMI) 40.4 Intake & Output: Intake and Output for Last 24 Hours 02/10/21 02/11/21 02/12/21 03:59 03:59 03:59 Intake Total 3180 / 3180 2680 / 2680 300 / 300 Balance 3180 / 3180 2680 / 2680 300 / 300 Lab / Micro Data Result Diagrams: 02/07/21 13:20 02/07/21 13:20 Physical Exam Const alert, oriented x3 and no apparent distress General Appearance: cooperative HEENT normocephalic, head/scalp atraumatic and moist oral mucous membranes Eyes PERRL, EOMs intact bilaterally and conjunctivae normal Neck supple and no JVD Lymph Lymphatic: no lymphadenopathy noted Resp normal respiratory effort, normal air movement, no retractions, no use of accessory muscles and clear to auscultation bilaterally Auscultation: Negative for crackles, rales, rhonchi or wheezes Cardio regular rate, regular rhythm, S1 normal heart sound, S2 normal heart sound and no murmurs GI normal to inspection, nondistended, normoactive bowel sounds, soft to palpation, non-tender and non-distended; Negative for hepatosplenomegaly Extremity no clubbing, cyanosis or edema General Extremity: no tenderness to palpation of joints or extremities Skin no rashes or lesions noted Neuro no focal motor deficits and no sensory deficits noted Psych Appearance: appropriate Mood & Affect: flat affect Assessment & Plan Assessment/Plan (1) Benzodiazepine withdrawal: QUALIFIERS: Complication of substance-induced condition: uncomplicated Qualified Code(s): F13.230 - Sedative, hypnotic or anxiolytic dependence with withdrawal, uncomplicated PLAN: 1. Benzodiazepine withdrawal/anxiety/depression/PTSD -Admit to [facility] for participation in the ramp program -Will initiate Ativan taper along with supportive medications including gabapentin per protocol -Case management consulted for coordination with 180 for outpatient management -Case is complicated by the patient's use of multiple benzodiazepines including alprazolam and clonazepam along with other sedating substances including Seroquel, phenobarbital, Haldol. -Patient has a history of opioid abuse as well, will continue Subutex at this time as patient does not wish to withdrawal from both medications concurrently -Hopefully with the cessation of using her benzos, the issues with significant prescriptions by multiple providers will be solved. -Discontinued Haldol, and decrease her gabapentin dosing from 4 times a day to 3 times a day, decrease her Seroquel from 100 mg to 50 mg. She is back on Suboxone twice daily. We will plan to decrease her Geodon from 40 twice daily to 20 twice daily tomorrow -Plan for residential on Saturday 2. Seizures -Stable -continue phenobarbital 3. Hypothyroidism -Stable -continue levothyroxine DVT: Lovenox Charges/Coding Visit Charges Inpatient E&M: 82403 Subs Hosp L2
[2021-02-11] MEDS: Dicyclomine 10 MG Capsule PO ×2 (13:30→21:24)
[2021-02-11] MEDS: Ondansetron 8 MG Tablet PO ×2 (13:30→21:24)
[2021-02-11] MEDS: cloNIDine HCl 0.2 MG Tablet PO ×2 (13:31→17:06)
[2021-02-11 14:00] VITALS: BP 112/67; PULSE 82; RESP 14; TEMP 36.6; O2SAT 95
[2021-02-11 17:03] VITALS: BP 102/65; PULSE 75; RESP 14; TEMP 36.8; O2SAT 98
[2021-02-11 21:14] VITALS: BP 125/74; PULSE 75; RESP 16; TEMP 36.6; O2SAT 95
[2021-02-11] MEDS: DOXEPIN HCL 50 MG CAPSULE 100 MG PO (21:24)
[2021-02-11] MEDS: Meloxicam 15 MG Tablet PO (21:24)
[2021-02-12 03:32] VITALS: BP 109/68; PULSE 74; RESP 17; TEMP 36.6; O2SAT 93
[2021-02-12] MEDS: Gabapentin 800 MG Tablet PO ×3 (05:56→21:33)
[2021-02-12] MEDS: Ondansetron 8 MG Tablet PO (05:56)
[2021-02-12] MEDS: Dicyclomine 10 MG Capsule PO (05:56)
[2021-02-12] MEDS: Levothyroxine 100 MCG Tablet PO (05:56)
[2021-02-12 08:06] VITALS: BP 109/75; PULSE 74; RESP 20; TEMP 36.6; O2SAT 98
[2021-02-12] MEDS: Potassium Chloride Oral Tablet 20 MEQ PO (08:09)
[2021-02-12] MEDS: cloNIDine HCl 0.2 MG Tablet PO ×3 (08:09→17:40)
[2021-02-12] MEDS: Folic Acid 1 MG Tablet PO (08:09)
[2021-02-12] MEDS: Thiamine Hydrochloride 100 MG Tablet PO (08:12)
--- NOTE | 2021-02-12 10:25 | PCM.PN.HOSP ---
Subjective Subjective Continues to feel that she is withdrawing, she completed her at band taper, and remains on gabapentin and phenobarbital Objective Data Objective Data Vital Signs: Vital Signs Temp Pulse Resp BP Pulse Ox 98 F 74 20 H 109/75 98 02/12/21 08:06 02/12/21 08:06 02/12/21 08:06 02/12/21 08:06 02/12/21 08:06 Oxygen Delivery Method Room Air Weight: 261 lb 12.8 oz Body Mass Index (BMI) 40.4 Intake & Output: Intake and Output for Last 24 Hours 02/11/21 02/12/21 02/13/21 03:59 03:59 03:59 Intake Total 2680 / 2680 1250 / 1250 780 / 780 Balance 2680 / 2680 1250 / 1250 780 / 780 Lab / Micro Data Result Diagrams: 02/07/21 13:20 02/07/21 13:20 Physical Exam Const alert, oriented x3 and no apparent distress General Appearance: cooperative HEENT normocephalic, head/scalp atraumatic and moist oral mucous membranes Eyes PERRL, EOMs intact bilaterally and conjunctivae normal Neck supple and no JVD Lymph Lymphatic: no lymphadenopathy noted Resp normal respiratory effort, normal air movement, no retractions, no use of accessory muscles and clear to auscultation bilaterally Auscultation: Negative for crackles, rales, rhonchi or wheezes Cardio regular rate, regular rhythm, S1 normal heart sound, S2 normal heart sound and no murmurs GI normal to inspection, nondistended, normoactive bowel sounds, soft to palpation, non-tender and non-distended; Negative for hepatosplenomegaly Extremity no clubbing, cyanosis or edema General Extremity: no tenderness to palpation of joints or extremities Skin no rashes or lesions noted Neuro no focal motor deficits and no sensory deficits noted Psych affect normal Appearance: appropriate Assessment & Plan Assessment/Plan (1) Benzodiazepine withdrawal: QUALIFIERS: Complication of substance-induced condition: uncomplicated Qualified Code(s): F13.230 - Sedative, hypnotic or anxiolytic dependence with withdrawal, uncomplicated PLAN: 1. Benzodiazepine withdrawal/anxiety/depression/PTSD -Admit to [facility] for participation in the ramp program -Will initiate Ativan taper along with supportive medications including gabapentin per protocol -Case management consulted for coordination with 180 for outpatient management -Case is complicated by the patient's use of multiple benzodiazepines including alprazolam and clonazepam along with other sedating substances including Seroquel, phenobarbital, Haldol. -Patient has a history of opioid abuse as well, will continue Subutex at this time as patient does not wish to withdrawal from both medications concurrently -Hopefully with the cessation of using her benzos, the issues with significant prescriptions by multiple providers will be solved. -Discontinued Haldol, and decrease her gabapentin dosing from 4 times a day to 3 times a day, decrease her Seroquel from 100 mg to 50 mg. She is back on Suboxone twice daily. Geodon is 20 mg twice daily starting today -Plan for residential on Saturday 2. Seizures -Stable -continue phenobarbital 3. Hypothyroidism -Stable -continue levothyroxine DVT: Lovenox Charges/Coding Visit Charges Inpatient E&M: 25949 Subs Hosp L2
[2021-02-12] MEDS: BUPRENORPHINE HCL 8 MG TAB.SUBL SL ×2 (10:56→21:33)
[2021-02-12] MEDS: Enoxaparin 40 MG/0.4 ML Syringe SC (10:58)
[2021-02-12] MEDS: DOXEPIN HCL 50 MG CAPSULE PO (11:00)
[2021-02-12] MEDS: QUEtiapine 25 MG Tablet 50 MG PO (11:01)
[2021-02-12] MEDS: Furosemide 40 MG Tablet PO (11:01)
[2021-02-12] MEDS: Phenobarbital 32.4 MG Tablet 64.8 MG PO (11:01)
[2021-02-12] MEDS: Ziprasidone HCl 20 MG Capsule PO ×2 (11:02→21:33)
[2021-02-12 12:05] VITALS: BP 120/80; PULSE 75; RESP 20; TEMP 36.6; O2SAT 92
[2021-02-12 16:05] VITALS: BP 113/66; PULSE 73; RESP 20; TEMP 36.6; O2SAT 97
[2021-02-12 21:16] VITALS: BP 110/68; PULSE 65; RESP 18; TEMP 36.5; O2SAT 99
[2021-02-12] MEDS: DOXEPIN HCL 50 MG CAPSULE 100 MG PO (21:34)
[2021-02-13 04:10] VITALS: BP 104/82; PULSE 75; RESP 18; TEMP 36.6; O2SAT 99
[2021-02-13] MEDS: Gabapentin 800 MG Tablet PO (06:11)
[2021-02-13] MEDS: Levothyroxine 100 MCG Tablet PO (06:11)
--- NOTE | 2021-02-13 07:33 | PCM.DC ---
Discharge Instructions Diet Discharge Diet: No restrictions Activity Discharge Activity: Return to Normal Activity Dressing / Incision Call your doctor if you observe: Fever of 101 or Higher, Shortness of breath, Dizziness, Swelling in the ankles, Chest pain and Increased palpitations (irregular heartbeat) Follow Up Care Test Results: Test results from this visit will be discussed in further detail at your follow-up appointment, if applicable. Discharge Plan Admission Admit Date/Time: 02/07/21 16:26 Attending Provider: Gary Mack Discharge Orders/Prescriptions Prescriptions: New quetiapine 25 mg Tablet 50 mg PO DAILY Qty: 0 RF: 0 ziprasidone HCl 20 mg Capsule 20 mg PO BID Qty: 0 RF: 0 gabapentin 800 mg Tablet 800 mg PO TID Qty: 0 RF: 0 nicotine 21 mg/24 hr Patch 24 Hour 21 mg transdermal DAILY Qty: 0 RF: 0 buprenorphine HCl 8 mg Tablet, Sublingual 8 mg sublingual BID Qty: 0 RF: 0 Continued potassium chloride 20 mEq Tablet Extended Release 20 meq PO DAILY RF: 0 clonidine HCl 0.2 mg Tablet 0.2 mg PO TID RF: 0 levothyroxine 100 mcg Tablet 100 mcg PO DAILY RF: 0 furosemide 40 mg tablet 40 mg PO DAILY RF: 0 ondansetron 8 mg tablet,disintegrating 8 mg PO TID PRN (Reason: Nausea) RF: 0 doxepin 50 mg capsule 50 mg PO DAILY RF: 0 doxepin 100 mg capsule 100 mg PO QHS RF: 0 albuterol sulfate 90 mcg/actuation HFA aerosol inhaler 1 - 2 puff INHALATION Q4H PRN (Reason: Shortness Of Breath) RF: 0 meloxicam 15 mg tablet 15 mg PO DAILY PRN (Reason: Pain) RF: 0 phenobarbital 64.8 mg tablet 64.8 mg PO DAILY RF: 0 dicyclomine 10 mg capsule 10 mg PO TID PRN (Reason: gi upset) RF: 0 Discontinued gabapentin 800 mg Tablet 800 mg PO 4X/DAY RF: 0 alprazolam [Xanax] 2 mg Tablet 2 mg PO Q6H RF: 0 quetiapine [Seroquel] 100 mg Tablet 100 mg PO DAILY RF: 0 Zubsolv 8.6-2.1 mg Tablet, Sublingual 1 tab SUBLINGUAL DAILY RF: 0 haloperidol 1 mg tablet 1 mg PO BID RF: 0 ziprasidone HCl 40 mg capsule 40 mg PO BID RF: 0 clonazepam 1 mg tablet 1 mg PO TID PRN (Reason: Anxiety) RF: 0 Referrals / Follow Up: ZOE CASTILLO [Other] Disposition Disposition (needs filled in before D/C Order can be placed): Home, Self Care
[2021-02-13] MEDS: Folic Acid 1 MG Tablet PO (08:13)
[2021-02-13] MEDS: cloNIDine HCl 0.2 MG Tablet PO (08:13)
[2021-02-13] MEDS: Potassium Chloride Oral Tablet 20 MEQ PO (08:14)
[2021-02-13] MEDS: Thiamine Hydrochloride 100 MG Tablet PO (08:14)
[2021-02-13 08:34] VITALS: BP 191/114; PULSE 101; RESP 18; TEMP 37.2; O2SAT 98
[2021-02-13] MEDS: Phenobarbital 32.4 MG Tablet 64.8 MG PO (09:04)
[2021-02-13] MEDS: BUPRENORPHINE HCL 8 MG TAB.SUBL SL (09:04)
[2021-02-13] MEDS: Furosemide 40 MG Tablet PO (09:05)
[2021-02-13] MEDS: Dicyclomine 10 MG Capsule PO (09:05)
[2021-02-13] MEDS: Enoxaparin 40 MG/0.4 ML Syringe SC (09:05)
[2021-02-13] MEDS: DOXEPIN HCL 50 MG CAPSULE PO (09:06)
[2021-02-13] MEDS: Ziprasidone HCl 20 MG Capsule PO (09:06)
[2021-02-13] MEDS: QUEtiapine 25 MG Tablet 50 MG PO (09:06)
[2021-02-13 09:08] VITALS: BP 172/90; PULSE 90; RESP 18; TEMP 37; O2SAT 98
--- NOTE | 2021-02-13 09:20 | PHA.DC.MR ---
Pharmacy Service has performed discharge medication reconciliation for this patient. The patient's discharge medication list was reviewed for discrepancies and discrepancies were resolved. Home Medications albuterol sulfate 1 - 2 puff INHALATION Q4H PRN 02/07/21 clonidine HCl 0.2 mg PO TID 02/07/21 dicyclomine 10 mg PO TID PRN 02/07/21 doxepin 50 mg PO DAILY 02/07/21 doxepin 100 mg PO QHS 02/07/21 furosemide 40 mg PO DAILY 02/07/21 levothyroxine 100 mcg PO DAILY 02/07/21 meloxicam 15 mg PO DAILY PRN 02/07/21 ondansetron 8 mg PO TID PRN 02/07/21 phenobarbital 64.8 mg PO DAILY 02/07/21 potassium chloride 20 meq PO DAILY 02/07/21 buprenorphine HCl 8 mg SUBLINGUAL BID #0 tab 02/13/21 gabapentin 800 mg PO TID #0 tab 02/13/21 nicotine 21 mg TRANSDERMAL DAILY #0 ea 02/13/21 quetiapine 50 mg PO DAILY #0 tab 02/13/21 ziprasidone HCl 20 mg PO BID #0 cap 02/13/21
--- NOTE | 2021-02-13 13:35 | PCM.DC.SUM ---
Providers Date of Admission: 02/07/21 Primary Care Physician: ZOE CASTILLO Reason For Visit: CHRISTEN KAY Diagnosis Discharge Diagnosis (1) Benzodiazepine withdrawal: Status: Acute Code(s): F13.239 - Sedative, hypnotic or anxiolytic dependence with withdrawal, unspecified Qualifiers: Complication of substance-induced condition: uncomplicated Qualified Code(s): F13.230 - Sedative, hypnotic or anxiolytic dependence with withdrawal, uncomplicated Medications at Discharge Home Medications albuterol sulfate 1 - 2 puff INHALATION Q4H PRN 02/07/21 clonidine HCl 0.2 mg PO TID 02/07/21 dicyclomine 10 mg PO TID PRN 02/07/21 doxepin 50 mg PO DAILY 02/07/21 doxepin 100 mg PO QHS 02/07/21 furosemide 40 mg PO DAILY 02/07/21 levothyroxine 100 mcg PO DAILY 02/07/21 meloxicam 15 mg PO DAILY PRN 02/07/21 ondansetron 8 mg PO TID PRN 02/07/21 phenobarbital 64.8 mg PO DAILY 02/07/21 potassium chloride 20 meq PO DAILY 02/07/21 buprenorphine HCl 8 mg SUBLINGUAL BID #0 tab 02/13/21 gabapentin 800 mg PO TID #0 tab 02/13/21 nicotine 21 mg TRANSDERMAL DAILY #0 ea 02/13/21 quetiapine 50 mg PO DAILY #0 tab 02/13/21 ziprasidone HCl 20 mg PO BID #0 cap 02/13/21 Hospital Course Operations None Procedures None Summary of Care Provided Minutes Spent on Discharge: 45 Hospital Course: Per HPI: AURELIA MOREIRA, is a 45 F who presents to the ER with desire for detoxification from Xanax. Patient does report a history of seizures when withdrawing from alcohol or benzos. Patient states that despite the Xanax being prescribed to her she has been abusing them and states her last use was yesterday. Patient states that she is currently feeling tremorous and has had bouts of nausea and vomiting today. Hospital Course: 1. Benzodiazepine withdrawal/anxiety/depression/PTSD -Admit to [facility] for participation in the ramp program -Will initiate Ativan taper along with supportive medications including gabapentin per protocol -Case management consulted for coordination with 180 for outpatient management -Case is complicated by the patient's use of multiple benzodiazepines including alprazolam and clonazepam along with other sedating substances including Seroquel, phenobarbital, Haldol. -Patient has a history of opioid abuse as well, will continue Subutex at this time as patient does not wish to withdrawal from both medications concurrently -Hopefully with the cessation of using her benzos, the issues with significant prescriptions by multiple providers will be solved. -Discontinued Haldol, and decrease her gabapentin dosing from 4 times a day to 3 times a day, decrease her Seroquel from 100 mg to 50 mg. She is back on Suboxone twice daily. Geodon is 20 mg twice daily starting today -I discussed with her the plan for discharge today and she expressed understanding of the risk benefits of going to residential treatment and would like to go today. She was little bit more agitated today secondary to some hallucinations she started having. This may indicate a need to go back up on the Seroquel from 50 mg to 100 mg.180 does have a psychiatrist who should be able to evaluate her and decide on the best course of action in terms of her medications and adjustments that she would need to have made. 2. Seizures -Stable -continue phenobarbital 3. Hypothyroidism -Stable -continue levothyroxine Physical Exam Const alert, oriented x3 and no apparent distress General Appearance: cooperative HEENT normocephalic and moist oral mucous membranes Eyes PERRL, EOMs intact bilaterally, conjunctivae normal and no scleral icterus Neck supple and no JVD Lymph Lymphatic: no lymphadenopathy noted Resp normal respiratory effort, normal air movement, no retractions, no use of accessory muscles and clear to auscultation bilaterally Auscultation: Negative for crackles, rales, rhonchi or wheezes Cardio regular rate, regular rhythm, S1 normal heart sound, S2 normal heart sound and no murmurs GI soft to palpation, non-tender and non-distended; Negative for hepatosplenomegaly Extremity normal capillary refill and no clubbing, cyanosis or edema General Extremity: no tenderness to palpation of joints or extremities Skin no rashes or lesions noted General Skin Exam: no breakdown and turgor normal Lesions: no lesions Rashes: no rashes Neuro no focal motor deficits, no sensory deficits noted and gait normal Motor Exam: tremor Type: Positive for resting Positive for bilateral upper extremity Psych Appearance: appropriate Mood & Affect: anxious Thought Content: hallucination(s) Positive for visual Weight / BMI Weight Weight: 261 lb 12.8 oz Body Mass Index (BMI) 40.4 ABG / Lab / Microbiology Data Result Diagrams: 02/07/21 13:20 02/07/21 13:20 D/C Instructions Discharge Diet: No restrictions Call your doctor if you observe: Fever of 101 or Higher, Shortness of breath, Dizziness, Swelling in the ankles, Chest pain and Increased palpitations (irregular heartbeat) Meaningful Use Info Meaningful Use Diagnoses (Choose all that apply): None applicable Discharge Plan Admission Admit Date/Time: 02/07/21 16:26 Attending Provider: Gary Mack Discharge Orders/Prescriptions Prescriptions: New quetiapine 25 mg Tablet 50 mg PO DAILY Qty: 0 RF: 0 ziprasidone HCl 20 mg Capsule 20 mg PO BID Qty: 0 RF: 0 gabapentin 800 mg Tablet 800 mg PO TID Qty: 0 RF: 0 nicotine 21 mg/24 hr Patch 24 Hour 21 mg transdermal DAILY Qty: 0 RF: 0 buprenorphine HCl 8 mg Tablet, Sublingual 8 mg sublingual BID Qty: 0 RF: 0 Continued potassium chloride 20 mEq Tablet Extended Release 20 meq PO DAILY RF: 0 clonidine HCl 0.2 mg Tablet 0.2 mg PO TID RF: 0 levothyroxine 100 mcg Tablet 100 mcg PO DAILY RF: 0 furosemide 40 mg tablet 40 mg PO DAILY RF: 0 ondansetron 8 mg tablet,disintegrating 8 mg PO TID PRN (Reason: Nausea) RF: 0 doxepin 50 mg capsule 50 mg PO DAILY RF: 0 doxepin 100 mg capsule 100 mg PO QHS RF: 0 albuterol sulfate 90 mcg/actuation HFA aerosol inhaler 1 - 2 puff INHALATION Q4H PRN (Reason: Shortness Of Breath) RF: 0 meloxicam 15 mg tablet 15 mg PO DAILY PRN (Reason: Pain) RF: 0 phenobarbital 64.8 mg tablet 64.8 mg PO DAILY RF: 0 dicyclomine 10 mg capsule 10 mg PO TID PRN (Reason: gi upset) RF: 0 Discontinued gabapentin 800 mg Tablet 800 mg PO 4X/DAY RF: 0 alprazolam [Xanax] 2 mg Tablet 2 mg PO Q6H RF: 0 quetiapine [Seroquel] 100 mg Tablet 100 mg PO DAILY RF: 0 Zubsolv 8.6-2.1 mg Tablet, Sublingual 1 tab SUBLINGUAL DAILY RF: 0 haloperidol 1 mg tablet 1 mg PO BID RF: 0 ziprasidone HCl 40 mg capsule 40 mg PO BID RF: 0 clonazepam 1 mg tablet 1 mg PO TID PRN (Reason: Anxiety) RF: 0 Referrals / Follow Up: ZOE CASTILLO [Other] Disposition Disposition (needs filled in before D/C Order can be placed): Home, Self Care Charges/Coding Visit Charges Inpatient E&M: 75530 Disch Hosp
== END 2021-02-13 09:15 | disposition home or self-care (01) | DRG 776 ==
LOC: ED 13:37 → MS3 16:40
PROVIDERS: Admitting Provider Family Medicine; Emergency Provider Student in an Organized Health Care Education/Training Program; Visit Provider Family Medicine
DX: F13.230 Sedative, hypnotic or anxiolytic dependence with withdrawal, uncomplicated (principal); E03.9 Hypothyroidism, unspecified; F32.9 Major depressive disorder, single episode, unspecified; F43.10 Post-traumatic stress disorder, unspecified; R56.9 Unspecified convulsions; Z68.41 Body mass index [BMI] 40.0-44.9, adult; E66.01 Morbid (severe) obesity due to excess calories; Z22.322 Carrier or suspected carrier of Methicillin resistant Staphylococcus aureus; F17.210 Nicotine dependence, cigarettes, uncomplicated; Z79.899 Other long term (current) drug therapy
CPT/HCPCS: 36415; 80053; 80307; 82077; 84703; 85025; 99283; 99406